=== PATIENT | male | born 1980 | race Caucasian/White ===

== ENCOUNTER 2024-07-01 22:30 | Emergency (ER) | payer MEDICAID, SELFPAY ==
[2024-07-01 22:31] VITALS: BP 168/98; PULSE 107; RESP 24; TEMP 36.1; O2SAT 98; BMI 33.3
--- NOTE | 2024-07-01 22:32 | RAD_ITS ---
PROCEDURE: HAND MIN 3 VIEWS 07/01/2024 REASON FOR EXAM: 44-year-old male, pain in 3rd and 4th fingers. TECHNIQUE: 3 view(s) of the left hand COMPARISON: None FINDINGS: Bones: No acute osseous fracture. Joints: Normal alignment. Joint spaces preserved. No arthropathic features. Soft tissues: Soft tissues are unremarkable. Other: No radiopaque foreign body. RAD/Hand Min 3 Views IMPRESSION: NO FRACTURE IDENTIFIED. If acute hand or wrist trauma is suspected and initial radiographs are negative or equivocal, repeat radiographs in 10-14 days is indicated to evaluate for occult fracture. Reading Location: [id number]
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
[2024-07-01] MEDS: HYDROcodone Bitartrate/Apap 5/325 Tablet PO (23:59)
[2024-07-01] MEDS: Ondansetron ODT 4 MG Tablet PO (23:59)
[2024-07-02 00:31] VITALS: BP 130/85; PULSE 89; RESP 18; TEMP 36.8; O2SAT 98
[2024-07-02 00:44] VITALS: BP 130/85; PULSE 89; RESP 18; TEMP 36.8; O2SAT 98
== END 2024-07-02 00:44 | disposition home or self-care (01) ==
PROVIDERS: Emergency Provider Emergency Medicine; PCP Internal Medicine; Visit Provider Emergency Medicine
DX: M79.642 Pain in left hand (principal); V29.91XA Electric (assisted) bicycle rider (driver) (passenger) injured in unspecified traffic accident, initial encounter; Y93.55 Activity, bike riding; F17.210 Nicotine dependence, cigarettes, uncomplicated
CPT/HCPCS: 73130; 99283

== ENCOUNTER 2024-10-28 15:30 | Outpatient (RCR) | payer MEDICAID, SELFPAY ==
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
--- NOTE | 2024-10-28 16:06 | HP.OTDCSUM_ITS ---
Discharge Summary D/C Summary: It has been my pleasure to treat AUTUMN JORDAN III under orders from Dr. Humberto Garnica DO, for the diagnosis of closed displaced fracture of shaft of 4th metacarpal for a total of 12 visit(s). Please see the following information for a summary of their discharge status. Overall Improvement % Improvement: 80 Objective Objective/Function: able to make full composite fist does rate pain in 4th finger DIP joint as 06/14 R 55# L 40# R lateral 15# L 15# R tripod 15# L 10# Goals Patient Goals: Regain Mobility, Regain Strength, Decrease Pain, Return to Work, Decrease Swelling/Stiffness, Improve Fine Motor Skills, Increase ROM and Be More Independent in ADLS Goal:: Patient will increase L private branch exchange service adviser strength by 5# in order to improve ADL function by d/c. GOAL MET Goal:: Patient will demonstrate increased L hand ROM for completion of ADL's, evidenced by finger flexion of each digit within 2 degrees of non-injured hand by discharge. GOAL MET Goal:: Patient will demonstrate independence with HEP. GOAL MET Plan Plan: discharge D/C Information Discharge Comments: This 44 year old male seen by OT for dx of L hand 4th metacrpal shaft fx. Pt has made gains throughout POC in functional use of hand as well as improved private branch exchange service adviser and pinch strength. discharge at this time with pt to perform ongoing strengthening at home. pt in agreeance. d/c sentence: If there are questions or concerns regarding this patient's occupational therapy, please fell free to call me at [phone]. Thank you for the referral of this patient. Sincerely, Vera Schneider
--- NOTE | 2024-10-28 16:06 | HP.OTDCNRP_ITS ---
Patient Information Patient Information: AUTUMN JORDAN III was seen in my office for initial evaluation on 09/01/24. The following Plan of Care was established for this patient: POC Established Initial Frequency: 1x/Week Initial Duration: 4 Weeks Plan: discharge Anticipated Interventions Anticipated Interventions: A/AAROM/PROM, Strengthening, Triggerpoint Release and Home Program Last Seen Last Seen: This patient was last seen in our office 10/28/24. Pertinent comments regarding their Occupational therapy will appear below: This 44 year old male seen by OT for dx of L hand 4th metacrpal shaft fx. Pt has made gains throughout POC in functional use of hand as well as improved coding file clerk and pinch strength. discharge at this time with pt to perform ongoing strengthening at home. pt in agreeance. At this point I will be discontinuing this patient from occupational therapy. I would be happy to see this patient again in the future if found appropriate by the physician. Thank you! Vera Schneider
== END 2024-10-28 19:00 | disposition home or self-care (01) ==
LOC: OT 15:30
PROVIDERS: PCP Internal Medicine; Referring Provider Family Medicine; Visit Provider Family Medicine
DX: S62.325D Displaced fracture of shaft of fourth metacarpal bone, left hand, subsequent encounter for fracture with routine healing (principal)
CPT/HCPCS: 97110; 97165; 97530